=== PATIENT | male | born 1950 | race Caucasian/White ===

== ENCOUNTER 2016-06-05 14:58 | Emergency (ER) | payer MEDICARE, OTHER ==
[~2016-06-05] VITALS: Ht 185.4 cm; Wt 95.3 kg
[~2016-06-05 14:58] MED LIST: ACTOS15 MG ORAL; BENZTROPINE MESY1 MG PO; DIPHENHYDRAMINE25 M1 ORAL; DOCUSATE SODIU100 MG ORAL; METFORMIN HCL500 M1 ORAL; SEROQUEL XR400 MG ORAL; TRADJENTA5 MG PO; TRILEPTAL600 MG PO
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
[2016-06-05] MEDS ORDERED: IBUPROFEN600 MG ORAL (16:02)
[2016-06-05] MEDS ORDERED: Bacitracin Oint UD TOPIC ONE (16:03)
[2016-06-05 16:20] VITALS: BP 124/64
--- NOTE | 2016-06-06 10:17 | Diagnostic Imaging Report ---
Indication: PAIN Technique: spiral acquisitions obtained through the brain. Angled axial and coronal 5 x 5 mm slices were reconstructed. No IV contrast utilized. Radiation dose was minimized using automated exposure control Total dose length product 1354 mGycm. CTDIvol(s) 70 mGy Comparison: none FINDINGS: No acute hemorrhage or edema. No mass effect or midline shift. There is age-related enlargement of the ventricles and extra axial CSF spaces. There is periventricular deep white matter ischemic change. Normal somers-white differentiation. Visualized orbits are unremarkable. There is extensive ethmoid sinus disease. The left mastoids are hypoplastic.. Intact calvarium. IMPRESSION: Chronic and age-related changes. Negative for acute intracranial bleed or mass effect Sinus disease This agrees with the preliminary interpretation provided overnight by Dr. Winter The CT scanner at [facility] is accredited by the [employer] and the scans are performed using protocols designed to limit radiation exposure to as low as reasonably achievable to attain images of sufficient resolution adequate for diagnostic evaluation
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
--- NOTE | 2016-06-06 11:03 | Diagnostic Imaging Report ---
Indications: CP Technique: Three views of the knee Comparison: None Findings: No acute fractures. No dislocations. Joint spaces are preserved. No radiopaque foreign body. Normal mineralization. There is a superior pole patellar traction osteophytes Impression: No acute process This agrees with the preliminary interpretation provided by the emergency room physician
== END 2016-06-05 16:20 | disposition home or self-care (01) ==
LOC: EDBD 14:58 → EMR 15:05
DX: S80.211A Abrasion, right knee, initial encounter (principal); S00.81XA Abrasion of other part of head, initial encounter; R07.9 Chest pain, unspecified; R51 Headache; F20.9 Schizophrenia, unspecified; E11.9 Type 2 diabetes mellitus without complications; Z79.4 Long term (current) use of insulin; Y00.XXXA Assault by blunt object, initial encounter; Y92.049 Unspecified place in boarding-house as the place of occurrence of the external cause; Y99.8 Other external cause status
CPT/HCPCS: 70450; 71010; 99284

== ENCOUNTER 2016-06-09 06:33 | Inpatient (IN) | payer MEDICARE, OTHER ==
[~2016-06-09] VITALS: Ht 185.4 cm; Wt 104.3 kg
[2016-06-09] VITALS (7 sets, daily range): BP systolic 132–147; BP diastolic 57–88
[~2016-06-09 06:33] MED LIST changes: +IBUPROFEN600 MG ORAL
[2016-06-09] MEDS ORDERED: Morphine Sulfate 4mg/ml Inj IVP ONE ×2 (06:45→09:30)
[2016-06-09 07:21] LABS: MEAN CORPUSCULAR HEMOGLOBIN 27.5 PG (27.0-31.0); MEAN CORPUSCULAR HGB CONC 32.5 G/DL (32.0-36.0); MEAN CORPUSCULAR VOLUME 85 FL (80-99); MEAN PLATELET VOLUME 6.7 FL (6.5-10.1); PLATELET COUNT 221 K/UL (150-450); RED BLOOD COUNT 4.53 M/UL (4.70-6.10); WHITE BLOOD COUNT 18.1 K/UL (4.8-10.8)
[2016-06-09 07:30] LABS: ALANINE AMINOTRANSFERASE 9 U/L (3-41); ALBUMIN/GLOBULIN RATIO 1.1 (1.0-2.7); ANION GAP 17 (5-15); ASPARTATE AMINO TRANSFERASE 16 U/L (5-40); CALCIUM 8.8 mg/dL (8.6-10.2); CARBON DIOXIDE 23 mEQ/L (20-30); CHLORIDE 99 mEQ/L (98-107); CREATININE 0.9 mg/dL (0.7-1.2); GLOMERULAR FILTRATION RATE > 60 mL/min (>60); HEMOLYSIS 7; POTASSIUM 3.1 mEQ/L (3.4-4.9); SODIUM 139 mEQ/L (135-145); TOTAL PROTEIN 6.8 g/dL (6.6-8.7); TROPONIN I < 0.30 ng/mL (<=0.30)
[2016-06-09 07:40] LABS: CKMB < 1.5 ng/mL (< 6.7)
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
[2016-06-09] MEDS ORDERED: Azithromycin 500 MG in NS 275 ML IV ONE (08:45)
[2016-06-09] MEDS ORDERED: Cefepime HCl 1 GM in NS 55 ML IV ONE (08:45)
[2016-06-09] MEDS ORDERED: Cefepime 1gm vial ONE (08:53)
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
[2016-06-09] MEDS ORDERED: Azithromycin Inj IV ONE (09:30)
[2016-06-09 09:34] LABS: ANISOCYTOSIS 1+; BAND NEUTROPHILS % (MANUAL) 2 % (0-8); BASOPHILS % (MANUAL) 0 % (0-2); EOSINOPHILS % (MANUAL) 0 % (0-3); LYMPHOCYTES % (MANUAL) 6 % (20-45); NEUTROPHILS % (MANUAL) 81 % (45-75); PLATELET ESTIMATE ADEQUATE; PLATELET MORPHOLOGY NORMAL; TOTAL CELLS COUNTED 100
[2016-06-09] MEDS ORDERED: Mylanta II UD 30ml ORAL PRN (09:45)
[2016-06-09] MEDS ORDERED: Nitroglycerin Subl 0.4mg tab (Bottle Of 25) SL PRN (09:45)
[2016-06-09] MEDS ORDERED: DuoNeb 0.5-3(2.5)mg/3ml neb HHN PRN (09:45)
[2016-06-09] MEDS ORDERED: Miralax 17gm pkt ORAL PRN (09:45)
[2016-06-09] MEDS ORDERED: Promethazine/Codeine 5ml UD ORAL PRN (09:45)
[2016-06-09] MEDS ORDERED: NovoLOG Insulin Flexpen SUBQ SCH (16:30)
--- NOTE | 2016-06-09 17:56 | History & Physical ---
History and Physical History & Physicial Dictated for Int Med-Dr Fitch no. [id number]. GREG SEGUNDO Jun 09, 2016 17:56
[2016-06-09] MEDS: Benztropine 1mg tab ORAL SCH (18:28)
[2016-06-09] MEDS: OXcarbazepine 150mg tab ORAL SCH (18:28)
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
[2016-06-09] MEDS: Heparin 5000 units/ml inj SUBQ SCH (21:00)
[2016-06-09] MEDS: Vitamin A&D Oint 2oz Tube TOPIC SCH (21:00)
[2016-06-09] MEDS: Cefepime HCl 1 GM in D5W 55 ML IV SCH (21:00)
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
[2016-06-10] VITALS: BP 125/84
[2016-06-10 04:00] VITALS: BP 131/64
[2016-06-10 07:53] VITALS: BP 112/59
[2016-06-10] MEDS: Benztropine 1mg tab ORAL SCH ×2 (08:07→17:48)
[2016-06-10] MEDS: OXcarbazepine 150mg tab ORAL SCH ×2 (08:08→17:48)
[2016-06-10] MEDS: Heparin 5000 units/ml inj SUBQ SCH ×2 (08:08→21:00)
[2016-06-10] MEDS: Cefepime HCl 1 GM in D5W 55 ML IV SCH (08:08)
[2016-06-10] MEDS: Vitamin A&D Oint 2oz Tube TOPIC SCH ×2 (08:08→21:00)
[2016-06-10] MEDS ORDERED: Norco 5mg/325mg tab ORAL PRN (11:00)
[2016-06-10 11:22] VITALS: BP 146/81
[2016-06-10] MEDS ORDERED: Augmentin 875mg Tab ORAL SCH (13:30)
--- NOTE | 2016-06-10 19:08 | Consultation ---
Consult Note Consult Note ID Dic # [id number] COSTA PATTON M.D. Jun 10, 2016 19:08
[2016-06-10 20:00] VITALS: BP 149/73
[2016-06-10] MEDS ORDERED: Nitroglycerin Subl 0.4mg tab (Bottle Of 25) SL PRN (20:00)
[2016-06-10] MEDS ORDERED: Cefepime HCl 1 GM in D5W 55 ML IV SCH (21:00)
--- NOTE | 2016-06-10 21:06 | Cardiology Report ---
APPROVED REPORT EKG Measurement Heart [id number] NM [id number] Normal sinus rhythm Left anterior fascicular block Septal infarct, age undetermined Abnormal ECG
[2016-06-10] MEDS ORDERED: Mylanta II UD 30ml ORAL PRN (21:45)
[2016-06-10] MEDS ORDERED: Promethazine/Codeine 5ml UD ORAL PRN (21:45)
[2016-06-10] MEDS ORDERED: DuoNeb 0.5-3(2.5)mg/3ml neb HHN PRN (21:45)
[2016-06-10] MEDS: QUEtiapine 200mg tab ORAL SCH (21:57)
--- NOTE | 2016-06-10 22:07 | Pulmonology Progress Note ---
Assessment/Plan Problems: (1) Pneumonia (2) Psychosis (3) Diabetes mellitus (4) Ribs, multiple fractures Assessment/Plan check sputum pain management antibiotics might need placement Subjective ROS Limited/Unobtainable: No Interval Events: still c/o pain Allergies: Coded Allergies: INSULIN REGULAR (Unverified Allergy, Severe, 11/29/14) Objective Last 24 Hour Vital Signs Date Time Temp Pulse Resp B/P Pulse Ox O2 Delivery O2 Flow Rate FiO2 06/10/16 19:43 92 Room Air 06/10/16 19:43 Room Air 06/10/16 19:42 77 18 Room Air 06/10/16 12:00 72 06/10/16 11:22 98.3 77 22 146/81 93 Nasal Cannula 5.0 06/10/16 09:23 Nasal Cannula 2.0 28 06/10/16 09:22 86 18 Nasal Cannula 2.0 28 06/10/16 09:22 97 Nasal Cannula 2.0 28 06/10/16 08:00 72 06/10/16 07:53 98.1 64 20 112/59 91 Room Air 06/10/16 04:00 72 06/10/16 04:00 99.2 73 20 131/64 96 Nasal Cannula 2.0 28 06/10/16 00:00 99.4 86 20 125/84 96 Nasal Cannula 2.0 28 06/10/16 00:00 79 Intake and Output 06/09/16 06/10/16 19:00 07:00 Intake Total 1420 ml 240 ml Output Total 600 ml Balance 820 ml 240 ml Intake Oral 590 ml 240 ml IV Total 830 ml Output Urine Total 600 ml # Voids 2 General Appearance: WD/WN HEENT: normocephalic, atraumatic Respiratory/Chest: chest wall non-tender, lungs clear, normal breath sounds Cardiovascular: normal peripheral pulses, normal rate Abdomen: normal bowel sounds, soft, non tender Genitourinary: normal external genitalia Extremities: no cyanosis Skin: no rash Neurologic/Psychiatric: set up and charger II-XII grossly normal Current Medications Medications (Trade) Dose Ordered Sig/Chrissy Route PRN Reason Start Time Stop Time Status Last Admin Dose Admin Acetaminophen (Tylenol) 650 mg Q4H PRN ORAL T>100.5 06/10/16 21:45 07/10/16 21:44 Acetaminophen/ Hydrocodone Bitart ([place] 5/325) 1 tab Q6H PRN ORAL Moderate Pain (Pain Scale 4-6) 06/10/16 23:00 06/17/16 22:59 Al Hydroxide/Mg Hydroxide (Mylanta II) 30 ml Q6H PRN ORAL dyspepsia 06/10/16 21:45 07/10/16 21:44 Albuterol/ Ipratropium (DuoNeb 0.5-3(2.5)mg/3ml) 3 ml Q4H PRN HHN Shortness of Breath 06/10/16 21:45 06/15/16 21:44 Benztropine Mesylate (Cogentin) 1 mg BID ORAL 06/11/16 09:00 07/11/16 08:59 Dextrose (Dextrose 50%) STAT PRN IV Hypoglycemia 06/11/16 09:45 07/11/16 09:44 Diphenhydramine HCl (Benadryl) 50 mg BIDPRN PRN ORAL ITCHING 06/11/16 10:30 07/11/16 10:29 Heparin Sodium (Porcine) (Heparin 5000 units/ml) 5,000 units EVERY 12 HOURS SUBQ 06/10/16 21:00 07/10/16 20:59 Levofloxacin (Levaquin) 500 mg QHS ORAL 06/10/16 22:00 06/17/16 21:59 Nitroglycerin (Ntg) 0.4 mg Q5M PRN SL Prn Chest Pain 06/10/16 20:00 07/10/16 19:59 Ondansetron HCl (Zofran) 4 mg Q6H PRN IVP Nausea & Vomiting 06/10/16 21:45 07/10/16 21:44 Oxcarbazepine (Trileptal) 300 mg EVERY 12 HOURS ORAL 06/11/16 09:00 07/11/16 08:59 Polyethylene Glycol (Miralax) 17 gm DAILYPRN PRN ORAL Constipation 06/11/16 09:45 07/11/16 09:44 Promethazine HCl/ Codeine (Phenergan with Codeine) 5 ml Q4H PRN ORAL For Cough 06/10/16 21:45 07/10/16 21:44 Quetiapine Fumarate (SEROquel) 400 mg BEDTIME ORAL 06/10/16 21:00 07/10/16 20:59 06/10/16 21:57 Temazepam (Restoril) 15 mg HSPRN PRN ORAL Insomnia 06/10/16 21:00 06/17/16 20:59 Vitamin A/Vitamin D (A & D Oint) 1 applic EVERY 12 HOURS TOPIC 06/10/16 21:00 07/10/16 20:59 06/10/16 21:00 RIAN TOURE Jun 10, 2016 22:07
[2016-06-10] MEDS: Levofloxacin 500mg tab ORAL SCH (22:22)
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
[2016-06-11] VITALS (7 sets, daily range): BP systolic 116–153; BP diastolic 53–71
--- NOTE | 2016-06-11 01:07 | Consultation ---
DATE OF CONSULTATION: INFECTIOUS DISEASE CONSULTATION CONSULTING PHYSICIAN: Luis Phelan M.D. REQUESTING PHYSICIAN: Mikey Toney M.D. REASON FOR CONSULTATION: Evaluation of the patient for pneumonia and antibiotic management. HISTORY OF PRESENT ILLNESS: The patient is a 66-year-old male, who has been admitted to this medical center for chest pain. The patient also has been complaining of cough with sputum production. Infectious Disease consultation has been requested for further evaluation of the patient and antibiotic management. PAST MEDICAL HISTORY: Hypertension, diabetes, generalized anxiety disorder. PAST SURGICAL HISTORY: None. ALLERGIES: Insulin. SOCIAL HISTORY: Significant for smoking. REVIEW OF SYSTEMS: HEENT: No recent change in vision or hearing. Pulmonary: As mentioned above. Cardiovascular: Chest pain as mentioned above. Genitourinary: No dysuria. Musculoskeletal: No pain in extremity. PHYSICAL EXAMINATION: VITAL SIGNS: Temperature 98.3 degrees, T-max 101.8 degrees, and blood pressure 160/81. HEENT: Mild pale conjunctiva. No icterus. NECK: No lymphadenopathy. CHEST: Coarse breathing sounds. HEART: S1 and S2. ABDOMEN: Soft and nontender. EXTREMITIES: No cyanosis at this time. NEUROLOGIC: Awake. LABORATORY AND DIAGNOSTIC DATA: White blood cells 18, hemoglobin 12, and platelets 221,000. UA unremarkable. BUN 16 and creatinine 0.3. ALT and AST are unremarkable. CT of the chest, multiple acute right rib fracture and chronic interstitial fibrosis, patchy consistent with right lung base. ASSESSMENT: The patient is a 66-year-old male with multiple medical problems, who has been admitted to this medical center. The patient has cough, sputum production, fever, and leukocytosis. The patient appears to have community-acquired pneumonia. PLAN: 1. We will continue the patient on cefepime and Zithromax, hold amoxiclav. 2. Monitor CBC. 3. Monitor BMP. 4. Monitor cultures (blood and sputum). 5. Monitor chest x-ray. 6. Management of right hip fracture per the rest of team. 7. Based on the patient's clinical course and laboratories, we will do further recommendations. Thank you, Dr. Toney, for allowing me to participate in the care of this patient. I will follow the patient with you during this hospitalization. Luis Phelan M.D. DR: HERMELINDO JOB#: [id number] CC:
[2016-06-11 07:03] LABS: BASOPHILS % (AUTO) 0.6 % (0.0-2.0); EOSINOPHILS % (AUTO) 0.8 % (0.0-3.0); LYMPHOCYTES % (AUTO) 5.9 % (20.0-45.0); MEAN CORPUSCULAR HEMOGLOBIN 27.5 PG (27.0-31.0); MEAN CORPUSCULAR HGB CONC 32.5 G/DL (32.0-36.0); MEAN CORPUSCULAR VOLUME 85 FL (80-99); MEAN PLATELET VOLUME 7.6 FL (6.5-10.1); MONOCYTES % (AUTO) 7.8 % (1.0-10.0); NEUTROPHILS % (AUTO) 84.9 % (45.0-75.0); PLATELET COUNT 191 K/UL (150-450); RED BLOOD COUNT 3.99 M/UL (4.70-6.10); RED CELL DISTRIBUTION WIDTH 15.8 % (11.6-14.8); WHITE BLOOD COUNT 10.9 K/UL (4.8-10.8)
[2016-06-11 08:36] LABS: ALANINE AMINOTRANSFERASE 9 U/L (3-41); ALBUMIN/GLOBULIN RATIO 1.1 (1.0-2.7); ANION GAP 16 (5-15); ASPARTATE AMINO TRANSFERASE 13 U/L (5-40); CALCIUM 8.6 mg/dL (8.6-10.2); CARBON DIOXIDE 24 mEQ/L (20-30); CHLORIDE 101 mEQ/L (98-107); CREATININE 0.8 mg/dL (0.7-1.2); GLOMERULAR FILTRATION RATE > 60 mL/min (>60); HEMOLYSIS 0; POTASSIUM 3.9 mEQ/L (3.4-4.9); SODIUM 141 mEQ/L (135-145); TOTAL PROTEIN 6.5 g/dL (6.6-8.7)
[2016-06-11] MEDS: OXcarbazepine 150mg tab ORAL SCH ×3 (09:00→21:15)
[2016-06-11] MEDS: Benztropine 1mg tab ORAL SCH ×3 (09:00→17:02)
[2016-06-11] MEDS ORDERED: OXcarbazepine 150mg tab ORAL SCH (09:00)
[2016-06-11] MEDS: Heparin 5000 units/ml inj SUBQ SCH ×2 (09:00→21:00)
[2016-06-11] MEDS: Vitamin A&D Oint 2oz Tube TOPIC SCH ×2 (09:34→21:00)
[2016-06-11] MEDS ORDERED: Miralax 17gm pkt ORAL PRN (09:45)
[2016-06-11] MEDS: Norco 5mg/325mg tab ORAL PRN (16:58)
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
[2016-06-11] MEDS: Levofloxacin 500mg tab ORAL SCH (21:15)
[2016-06-11] MEDS: QUEtiapine 200mg tab ORAL SCH (21:16)
[2016-06-12] MEDS: Norco 5mg/325mg tab ORAL PRN (02:58)
[2016-06-12 04:00] VITALS: BP 134/59
--- NOTE | 2016-06-12 07:59 | Diagnostic Imaging Report ---
Indications: DYSPNEA Technique: Portable AP chest Findings: Comparison: 06/05/16 Cardiac silhouette remains normal in size. Pulmonary vascular redistribution bilateral interstitial infiltrates have increased. Linear and hazy opacities have developed in the right lung base. Blunting of the right costophrenic angle has developed. Left costophrenic angle remains sharp. IMPRESSION: Findings most compatible with development/exacerbation of congestive heart failure with increasing pulmonary edema, development of right basal pleural effusion Superimposed atelectasis or pneumonia right lower lobe not excludable
[2016-06-12] MEDS: Heparin 5000 units/ml inj SUBQ SCH (08:33)
[2016-06-12] MEDS: Vitamin A&D Oint 2oz Tube TOPIC SCH (08:33)
[2016-06-12] MEDS: OXcarbazepine 150mg tab ORAL SCH (08:33)
[2016-06-12] MEDS: Benztropine 1mg tab ORAL SCH (08:36)
[2016-06-12 10:16] VITALS: BP 158/71
--- NOTE | 2016-06-12 10:43 | Infectious Diseases Prog Note ---
Assessment/Plan Assessment/Plan A: Pneumonia Multiple ribs fracture DM type II HPN P; continue Levaquin Subjective ROS Limited/Unobtainable: No Constitutional: Reports: no symptoms Respiratory: Reports: productive cough Gastrointestinal/Abdominal: Reports: no symptoms Genitourinary: Reports: no symptoms Musculoskeletal: Reports: other - in right chest, pain Allergies: Coded Allergies: INSULIN REGULAR (Unverified Allergy, Severe, 11/29/14) Objective Vital Signs Last 24 Hour Vital Signs Date Time Temp Pulse Resp B/P Pulse Ox O2 Delivery O2 Flow Rate FiO2 06/12/16 10:16 97.9 65 20 158/71 98 Room Air 06/12/16 04:00 97.7 64 24 134/59 96 Room Air 06/12/16 03:57 97.7 06/11/16 23:47 99.1 72 24 139/68 92 Nasal Cannula 06/11/16 20:12 Room Air 06/11/16 20:12 95 Room Air 06/11/16 19:50 98.4 68 24 116/53 96 Room Air 06/11/16 19:04 99.3 70 21 135/63 95 Nasal Cannula 2.0 06/11/16 11:48 98.2 78 20 133/58 95 Nasal Cannula 2.0 Height (Feet): 6 Height (Inches): 1.00 Weight (Pounds): 230 General Appearance: no acute distress HEENT: mucous membranes moist Respiratory/Chest: lungs clear Cardiovascular: normal rate Abdomen: soft, non tender Extremities: no edema Neurologic/Psychiatric: alert, responsive Microbiology Date/Time Source Procedure Growth Status 06/11/16 07:55 Sputum Gram Stain - Final Resulted 06/11/16 07:55 Sputum Sputum Culture - Preliminary NO GROWTH Resulted 06/09/16 12:20 Nasal Nares MRSA Culture - Final NO METHICILLIN RESISTANT STAPH AUREUS... Complete 06/09/16 12:20 Rectum VRE Culture - Final NO VANCOMYCIN RESISTANT ENTEROCOCCUS ... Complete Current Medications Medications (Trade) Dose Ordered Sig/Chrissy Route PRN Reason Start Time Stop Time Status Last Admin Dose Admin Acetaminophen (Tylenol) 650 mg Q4H PRN ORAL T>100.5 06/10/16 21:45 07/10/16 21:44 Acetaminophen/ Hydrocodone Bitart ([place] 5/325) 1 tab Q6H PRN ORAL Moderate Pain (Pain Scale 4-6) 06/10/16 23:00 06/17/16 22:59 06/12/16 02:58 Al Hydroxide/Mg Hydroxide (Mylanta II) 30 ml Q6H PRN ORAL dyspepsia 06/10/16 21:45 07/10/16 21:44 Albuterol/ Ipratropium (DuoNeb 0.5-3(2.5)mg/3ml) 3 ml Q4H PRN HHN Shortness of Breath 06/10/16 21:45 06/15/16 21:44 Benztropine Mesylate (Cogentin) 1 mg BID ORAL 06/11/16 09:00 07/11/16 08:59 06/11/16 17:02 Dextrose (Dextrose 50%) STAT PRN IV Hypoglycemia 06/11/16 09:45 07/11/16 09:44 Diphenhydramine HCl (Benadryl) 50 mg BIDPRN PRN ORAL ITCHING 06/11/16 10:30 07/11/16 10:29 Heparin Sodium (Porcine) (Heparin 5000 units/ml) 5,000 units EVERY 12 HOURS SUBQ 06/10/16 21:00 07/10/16 20:59 Levofloxacin (Levaquin) 500 mg QHS ORAL 06/10/16 22:00 06/17/16 21:59 06/11/16 21:15 Nitroglycerin (Ntg) 0.4 mg Q5M PRN SL Prn Chest Pain 06/10/16 20:00 07/10/16 19:59 Ondansetron HCl (Zofran) 4 mg Q6H PRN IVP Nausea & Vomiting 06/10/16 21:45 07/10/16 21:44 Oxcarbazepine (Trileptal) 300 mg EVERY 12 HOURS ORAL 06/11/16 09:00 07/11/16 08:59 06/12/16 08:33 Polyethylene Glycol (Miralax) 17 gm DAILYPRN PRN ORAL Constipation 06/11/16 09:45 07/11/16 09:44 Promethazine HCl/ Codeine (Phenergan with Codeine) 5 ml Q4H PRN ORAL For Cough 06/10/16 21:45 07/10/16 21:44 06/12/16 00:18 Quetiapine Fumarate (SEROquel) 400 mg BEDTIME ORAL 06/10/16 21:00 07/10/16 20:59 06/11/16 21:16 Temazepam (Restoril) 15 mg HSPRN PRN ORAL Insomnia 06/10/16 21:00 06/17/16 20:59 06/11/16 21:23 Vitamin A/Vitamin D (A & D Oint) 1 applic EVERY 12 HOURS TOPIC 06/10/16 21:00 07/10/16 20:59 06/12/16 08:33 LINDSEY PERKINS Jun 12, 2016 10:43
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
[2016-06-14] MEDS ORDERED: LEVAQUIN500 MG ORAL (08:18)
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
== END 2016-06-12 13:03 | disposition home or self-care (01) | DRG 194 ==
LOC: ENRESERVDT → ENRESERVTM → EDBD 06:33 → EMR 07:20 → 2E 09:26 → EDBEDREQ 09:41 → 2E 14:13 → 4E 06-10 19:56
DX: J18.9 Pneumonia, unspecified organism (principal); S22.41XA Multiple fractures of ribs, right side, initial encounter for closed fracture; Y00.XXXA Assault by blunt object, initial encounter; E11.9 Type 2 diabetes mellitus without complications; F17.200 Nicotine dependence, unspecified, uncomplicated; F31.9 Bipolar disorder, unspecified; F29 Unspecified psychosis not due to a substance or known physiological condition
CPT/HCPCS: 36415; 71010; 71250; 80053; 82550; 82553; 84484; 85007; 85025; 87070; 87081; 87205; 93005; 94640; 94664; 94760; J7620; J8499